=== PATIENT | female | born 1965 | race Two or more races ===

== ENCOUNTER 2017-12-14 08:29 | Emergency (ER) | payer OTHER ==
[~2017-12-14] VITALS: Ht 157.5 cm; Wt 66.7 kg
[2017-12-14 08:33] VITALS: Ht 157.5 cm; Wt 66.7 kg
[2017-12-14 09:59] LABS: BASOPHIL % 0.4 % (0-2); PLATELET COUNT 309 x10^3mcL (130-400); RED CELL DISTRIBUTION WIDTH 13.5 % (11.5-14.5)
[2017-12-14 10:25] LABS: CALCIUM 8.1 mg/dL (8.5-10.1); CHLORIDE SERUM 107 mmol/L (98-107); CREATININE SERUM 0.7 mg/dL (0.6-1.0); GFR1 > 60 mL/min; GLUCOSE SERUM 140 mg/dL (74-106); POTASSIUM SERUM 3.8 mmol/L (3.5-5.1); SODIUM SERUM 139 mmol/L (136-145)
[2017-12-14 10:30] LABS: ALBUMIN 3.4 g/dL (3.4-5.0); ALKALINE PHOSPHATASE 89 U/L (46-116); ALT/SGPT 30 U/L (14-59); AST/SGOT 27 U/L (15-37); BILIRUBIN TOTAL 0.44 mg/dL (0.20-1.00); CHOLESTEROL 189 mg/dL (<200); LIPASE 87 IU/L (73-393); TOTAL PROTEIN, SERUM 7.4 g/dL (6.4-8.2)
[2017-12-14 10:31] LABS: CHOLESTEROL/HDL RATIO 5.7; HDL CHOLESTEROL 33 mg/dL (40-60); TRIGLYCERIDES 207 mg/dL (<150)
[2017-12-14 10:33] LABS: FREE T4 0.95 ng/dL (0.76-1.46); FREE THYROXINE INDEX 2.5 ug/dL (1.4-4.5); T4(THYROXINE) 7.7 ug/dL (4.7-13.3)
[2017-12-14 10:47] LABS: T3 TOTAL 0.93 ng/mL
[2017-12-14 10:50] LABS: UA SPECIFIC GRAVITY >=1.030 (1.005-1.035); microscopic required? YES; urine erythrocyte 3+ (NEGATIVE)
[2017-12-14 10:59] VITALS: BP 121/90
== END 2017-12-14 11:00 | disposition home or self-care (01) ==
LOC: ED 08:29
PROVIDERS: Specialist
DX: R42 Dizziness and giddiness (principal); R11.10 Vomiting, unspecified
CPT/HCPCS: 83880; 84439; J7030; J8597